=== PATIENT | female | born 1930 | race Caucasian/White ===

== ENCOUNTER → 2018-10-13 | Outpatient (CLI) | payer OTHER | END | disposition home or self-care (01) | LOC: NUCLEAR 10:00 | DX: R41.81 Age-related cognitive decline (principal); G30.0 Alzheimer's disease with early onset | CPT/HCPCS: 78607; A9557 ==

== ENCOUNTER 2021-11-15 09:33 | Outpatient (CLI) | payer OTHER | END 2021-11-15 09:34 | disposition home or self-care (01) | LOC: TOM 09:33 | PROVIDERS: ATTEND Internal Medicine Hematology & Oncology | DX: D53.0 Protein deficiency anemia (principal); D51.3 Other dietary vitamin B12 deficiency anemia; D50.8 Other iron deficiency anemias ==

== ENCOUNTER 2022-03-28 14:03 | Outpatient (CLI) | payer OTHER | END 2022-03-28 14:12 | disposition home or self-care (01) | LOC: RAD 14:03 | PROVIDERS: ATTEND Internal Medicine | DX: M25.551 Pain in right hip (principal); M25.552 Pain in left hip; M25.561 Pain in right knee; M25.562 Pain in left knee ==